=== PATIENT | male | born 1950 | race Caucasian/White ===

== ENCOUNTER 2018-01-02 09:26 | Day surgery (SDC) | payer OTHER ==
[2018-01-02] MEDS ORDERED: MIDAZOLAM 2 MG/2 ML VIAL IVP ONE (09:30)
[2018-01-02] MEDS ORDERED: ATROPINE SULFATE 1 MG/10 ML SYR IVP ONE (09:30)
[2018-01-02] MEDS ORDERED: fentaNYL 100 MCG/2 ML INJ IVP ONE (09:30)
[2018-01-02] MEDS ORDERED: NS 500 ML IV ONE (09:30)
[2018-01-02] MEDS ORDERED: BENZOCAINE UNIT DOSE SPRAY HURRICAINE MM ONE (09:30)
[2018-01-02 10:06] LABS: INR 1.2 (0.83-1.16); PROTIME(PATIENT) 15.4 SEC (12.0-15.0)
[2018-01-02] MEDS ORDERED: PROPOFOL 200 MG/20 ML VIAL ONE ×2 (11:02→11:24)
--- NOTE | 2018-01-02 11:02 | PDGENHP ---
History & Physical Chief Complaint: Atrial fibrillation History of Present Illness: Patient is a 67 y/o male with history of GERD, HLP, and prostate cancer, with ongoing atrial fibrillation (unknown duration). Patient was started on Eliquis (for this procedure) about one month ago. Pertinent Past, Social, Family History: Non smoker. . FHx: DM, prostate cancer, HTN Relevant Physical Exam: Atrial fibrillation with controlled ventricular response Cardiorespiratory Assessment: Controlled heart rate. Blood pressure well controlled. Normal respiratory rate.
--- NOTE | 2018-01-02 11:06 | POSTANESTH ---
Post Anesthetic Evaluation Cardiovascular Status: Normal, Stable Respiratory Status: Normal, Stable Level of Consciousness/Mental Status: Can Participate in Eval Pain Control: Adequate, Prn Tx Ordered Nausea/Vomiting Control: Adequate, Prn Tx Ordered Complications Possibly Related to Anesthesia: None Noted, Other, See Comments ( required GETA 2/2 hyperactive gag reflex)
--- NOTE | 2018-01-02 11:06 | PDANEPAE ---
ANE History of Present Illness INES CV ANE Past Medical History - Cardiovascular History Hx Hypertension: No Hx Arrhythmias: Yes Hx Chest Pain: No Hx Coronary Artery / Peripheral Vascular Disease: No Hx CHF / Valvular Disease: No Hx Palpitations: No - Pulmonary History Hx COPD: No Hx Asthma/Reactive Airway Disease: No Hx Recent Upper Respiratory Infection: No Hx Oxygen in Use at Home: No - Endocrine History Hx Diabetes: No ANE Review of Systems Review of systems is: negative Review of Systems: - Exercise capacity Exercise capacity: >=4 METS ANE Patient History - Allergies Allergies/Adverse Reactions: No Known Allergies Allergy (Verified 03/27/12 12:04) - Home Medications Home Medications: Beta-Carotene(A) W-C & E/Min [Ocuvite] 1 tab PO DAILY 03/27/12 [Last Taken 03/27] Niacin [Niacin 500 mg (OTC)] 500 mg PO DAILY 03/27/12 [Last Taken 03/27/12] Ranitidine HCl [Ranitidine HCl 150 mg] 150 mg PO BID 03/27/12 [Last Taken ] Aspirin [Aspirin 81mg (OTC)] 07/01/15 [Last Taken Unknown] Atorvastatin Calcium 07/01/15 [Last Taken Unknown] - Smoking Hx Smoking Status: Never smoked ANE Labs/Vital Signs - Labs Result Diagrams: 01/02/18 09:45 ANE Physical Exam - Airway Neck exam: FROM Mallampati Score: Class 2 Mouth exam: normal dental/mouth exam - Pulmonary Pulmonary: no respiratory distress - Cardiovascular Cardiovascular: regular rate and rhythym - ASA Status ASA Status: III ANE Anesthesia Plan Anesthesia Plan: GA with mask
--- NOTE | 2018-01-02 17:28 | PDTEE1 ---
INES Cardioversion Procedure Procedure: electrical cardioversion, transesophageal echo Indications: atrial fibrillation Consent: signed and in chart Anticoagulation: eliquis Procedural Details: After consents for anesthesia and INES with possible cardioversion were signed, the patient was positioned on the left lateral side to facilitate ease with INES probe placement. Sedation was rendered by anesthesia, and initial attempts with placement of the INES probe were frought with an extreme gag reflex. Further sedation did not limit this response. After unsuccessful INES probe placement and a judicious use of sedation without success, we opted to pursue intubation for airway protection. I stepped out of the room (anesthesia remained to monitor the patient), and spoke with the patient's and daughter about the concerns for safety with continued pursuit of these procedures. Time and room availability were noted, and we were able to proceed with intubation for airway protection at this time. The other option discussed would be to cancel the procedure completely, and reschedule on another day (which would be for general anesthesia with intubation ). The family was in agreement with pursuit of this procedure today given sedation that had been rendered, and a desire to have (a) awareness of thrombus or not as well as (b) possible cessation of the "newly" noted atrial fibrillation. The patient was then moved to the EP lab (anesthesia equipment and staffing were present), and anesthesia intubated the patient without incident. INES probe was placed without difficulty or resistance, and standard views were obtained. Preliminary report: Normal LVEF Dilated LA (mod to severe) Mild to mod MR Trileaflet aortic valve with sclerosis, but no stenosis or insufficiency Grossly normal tricuspid valve (no TR) Grossly normal pulmonic valve (no PI) Bubble contrast injection without right to left passage noted No thrombus to the MARIAJOSE (atrial smoke was noted) We opted to proceed with cardioversion as below Synchronized cardioversion attempt #1: 200J Synchronized cardioversion attempt #2: 300J Synchronized cardioversion attempt #3: 360J Results: other (atrial flutter was briefly noted after 300J and 360J cardioversions) Conclusions: successful INES Conclusion Comment: Recommendations post procedure were for outpatient follow up (in about 1 weeks) for discussion about options (should we opt to proceed). Would maintain therapies as at present (Eliquis for CVA prophylaxis post unsuccessful cardioversion). Patient has likely been in this arrhythmia for some time given the lack of response to three shocks of incrementally more voltage.
--- NOTE | 2018-01-03 17:43 | CPEKG ---
Test Reason : OPEN Blood Pressure : / mmHG Vent. Rate : 085 BPM Atrial Rate : 113 BPM P-R Int : 067 ms QRS Dur : 089 ms QT Int : 358 ms P-R-T Axes : 000 -30 000 degrees QTc Int : 426 ms Atrial fibrillation Inferior infarct, old Confirmed by Dawit Licona ([id number]) on 01/03/2018 5:43:10 PM Referred By: Confirmed By:Dawit Licona
== END 2018-01-02 16:28 | disposition home or self-care (01) ==
LOC: FCATH 09:26
PROVIDERS: ATTEND Internal Medicine Cardiovascular Disease
PROC: B245ZZ4 Ultrasonography of Left Heart, Transesophageal (ICD-10-PCS; principal; 2018-01-02)
PROC: 5A2204Z Restoration of Cardiac Rhythm, Single (ICD-10-PCS; principal; 2018-01-02)
DX: I48.91 Unspecified atrial fibrillation (principal); Z79.01 Long term (current) use of anticoagulants; E78.5 Hyperlipidemia, unspecified; K21.9 Gastro-esophageal reflux disease without esophagitis; Z85.46 Personal history of malignant neoplasm of prostate
CPT/HCPCS: J0461; J2704

== ENCOUNTER → 2018-01-05 | Outpatient (CLI) | payer OTHER | LOC: FCPNEURO 21:34 | PROVIDERS: ATTEND Student in an Organized Health Care Education/Training Program | DX: G47.33 Obstructive sleep apnea (adult) (pediatric) (principal) ==

== ENCOUNTER → 2018-06-09 | Outpatient (CLI) | payer OTHER | LOC: FIMAGING 08:00 ==

== ENCOUNTER 2018-07-28 05:43 | Day surgery (SDC) | payer OTHER ==
--- NOTE | 2018-07-21 09:46 | GHP ---
[f rep st] PREOP HISTORY AND PHYSICAL DATE OF ADMISSION: 07/28/2018 CHIEF COMPLAINT: Left inguinal hernia. HISTORY OF PRESENT ILLNESS: The patient is a 68-year-old male who presents for surgical evaluation o f a left inguinal hernia. He reports that the hernia has been present for several years but has neve r bothered him. He presents at the request of his tracer clerk, Dr. Desir, because he was unable to perform a colonoscopy due to the hernia. The patient has a family history of colon cancer but denies a personal history of the disease. He denies rectal bleeding, constipation, diarrhea, an d unintentional weight loss. PAST MEDICAL HISTORY: Atrial fibrillation, colon polyp, GERD, esophagitis, hyperlipidemia, macular d egeneration, prostate cancer status post radical prostatectomy in 2010. PAST SURGICAL HISTORY: Knee surgery, prostatectomy, tonsillectomy. MEDICATIONS: Aspirin 81 mg, atorvastatin 20 mg, Eliquis 5 mg, ferrous sulfate 325 mg, metoprolol tar trate 25 mg, multivitamin, niacin 500 mg, Ocuvite 631-39-0-150 mg, ranitidine 150 mg, Tylenol 325 mg, vitamin D3. ALLERGIES: No known drug allergies. FAMILY HISTORY: Diabetes, prostate cancer, breast cancer, hypertension. SOCIAL HISTORY: The patient is a nonsmoker and does not drink alcohol. REVIEW OF SYSTEMS: Ten-point review of systems was performed and is negative aside from what is in t he HPI. PHYSICAL EXAM: GENERAL: Well-appearing, well-dressed, well-groomed 68-year-old male in no acute dis tress. HEENT: Normocephalic, atraumatic. No gross hearing deficits. Mucous membranes are moist. Pupils are equal and round. CARDIAC: Irregularly irregular. No murmurs, clicks, or rubs. CHEST: Clear to auscultation bilaterally. No crackles, rales, or rhonchi. ABDOMEN: Soft, nontender, nondi stended. Small umbilical defect present. : A large, nonreducible left inguinal hernia containing colon and small bowel is present. No hernia appreciated on the right side. INTEGUMENTARY: Warm an d dry. No rashes or jaundice. MUSCULOSKELETAL: Moves all extremities equally x4. PSYCHIATRIC: Ap propriate mood and affect. NEUROLOGICAL: Alert and oriented x3. IMPRESSION AND PLAN: The patient is a 68-year-old male with a large, nonreducible inguinal hernia on the left side that contains colon and small bowel. We have discussed all risks and options. Risks of surgery include but are not limited to infection, bleeding, recurrence, damage to surrounding stru ctures including spermatic cord, bowel, bladder; heart attack; and . Patient understands and wi shes to proceed. We will proceed with laparoscopic left inguinal hernia repair with mesh with explor ation of the right side. He knows that he will need to be off his Eliquis for at least 24 hours prio r to surgery. /[id number]/MODL
[2018-07-28] MEDS ORDERED: ceFAZolin 2 GM/DEXTROSE 100 ML IV ONE (05:56)
[2018-07-28] MEDS ORDERED: LR 1,000 ML IV ONE (06:01)
[2018-07-28] MEDS ORDERED: LIDOCAINE 1% 2 ML INJ ID PRN (06:01)
[2018-07-28] MEDS ORDERED: LIDOCAINE 1% 2 ML INJ ONE (06:04)
--- NOTE | 2018-07-28 06:58 | PDANEPAE ---
ANE History of Present Illness Left, poss bilateral inguinal hernia ANE Past Medical History - Cardiovascular History Hx Hypertension: Yes Hx Arrhythmias: Yes Hx Chest Pain: No Hx Coronary Artery / Peripheral Vascular Disease: No Hx CHF / Valvular Disease: No Hx Palpitations: No Cardiovascular History Comment: Afib with failed cardiovertion 2018. Eliquis - Pulmonary History Hx COPD: No Hx Asthma/Reactive Airway Disease: No Hx Recent Upper Respiratory Infection: No Hx Oxygen in Use at Home: No Hx Sleep Apnea: Yes Sleep Apnea Screening Result - Last Documented: Positive Pulmonary History Comment: MATTHIEU uses CPAP - Neurologic History Hx Cerebrovascular Accident: No Hx Seizures: No Hx Dementia: No - Endocrine History Hx Diabetes: No - Renal History Hx Renal Disorders: No - Liver History Hx Hepatic Disorders: No - Neurological & Psychiatric Hx Hx Neurological and Psychiatric Disorders: No - Cancer History Hx Cancer: Yes Cancer History Comment: prostate - Congenital Disorder History Hx Congenital Disorders: No - GI History Hx Gastrointestinal Disorders: Yes Gastrointestinal History Comment: acid reflux - Other Health History Other Health History: none - Chronic Pain History Chronic Pain: No - Surgical History Prior Surgeries: none in last 5 yrs. prostectomy ANE Review of Systems Review of Systems: - Exercise capacity METS (RN): 4 METS ANE Patient History - Allergies Allergies/Adverse Reactions: No Known Allergies Allergy (Verified 03/27/12 12:04) - Home Medications Home medications: home medication list seen and reviewed Home Medications: Beta-Carotene(A) W-C & E/Min [Ocuvite] 03/27/12 [Last Taken 07/25/18] Niacin [Niacin 500 mg (OTC)] 03/27/12 [Last Taken 07/25/18] Ranitidine HCl [Ranitidine HCl 150 mg] 03/27/12 [Last Taken 07/27/18 19:00] Aspirin [Aspirin 81mg (OTC)] 07/01/15 [Last Taken 07/25/18] Atorvastatin Calcium 07/01/15 [Last Taken 07/27/18 21:00] Eliquis 07/25/18 [Last Taken 07/25/18] Metoprolol Tartrate 07/25/18 [Last Taken 07/27/18 21:00] - NPO status NPO Status: no food or drink >8 hours NPO Since - Liquids (Date): 07/27/18 NPO Since - Liquids (Time): 20:00 NPO Since - Solids (Date): 07/27/18 NPO Since - Solids (Time): 20:00 - Anes Hx Anes Hx: no prior problems - Smoking Hx Smoking Status: Never smoked - Family Anes Hx Family Hx Anesthesia Complications: none ANE Labs/Vital Signs - Vital Signs Blood Pressure: 128/90 Heart Rate: 77 Respiratory Rate: 16 O2 Sat (%): 95 Height: 172.72 cm Weight: 90.718 kg ANE Physical Exam - Airway Neck exam: decreased ROM Mallampati Score: Class 2 Mouth exam: normal dental/mouth exam - Pulmonary Pulmonary: no respiratory distress - Cardiovascular Cardiovascular: regular rate and rhythym - ASA Status ASA Status: II ANE Anesthesia Plan Anesthesia Plan: general endotracheal anesthesia
[2018-07-28] MEDS ORDERED: BUPIVACAINE 0.5% 30 ML SDV ONE (07:00)
[2018-07-28] MEDS ORDERED: MIDAZOLAM 2 MG/2 ML VIAL IVP ONE (07:06)
--- NOTE | 2018-07-28 07:06 | PDHPUP ---
History & Physical Update H&P update statement: This history and physical update is based on an assessment of the patient which was completed after admission or registration (within 24 hours), but prior to the surgery/procedure. H&P update: H&P reviewed & patient examined, no change in patient's condition since H&P completed
[2018-07-28] MEDS ORDERED: fentaNYL 100 MCG/2 ML INJ IVP PRN (07:56)
[2018-07-28] MEDS ORDERED: ONDANSETRON 4 MG/2 ML VIAL IVP PRN (07:56)
[2018-07-28] MEDS ORDERED: NALOXONE HCL 0.4 MG/ML INJ IVP PRN (07:56)
[2018-07-28] MEDS ORDERED: PROMETHAZINE HCL 25 MG/ML INJ IVP PRN (07:56)
--- NOTE | 2018-07-28 08:55 | POSTANESTH ---
Post Anesthetic Evaluation Cardiovascular Status: Similar to Pre-Op Cond Respiratory Status: Similar to Pre-op Cond. Level of Consciousness/Mental Status: Alert and Oriented Pain Control: Adequate, Prn Tx Ordered Nausea/Vomiting Control: Adequate, Prn Tx Ordered Complications Possibly Related to Anesthesia: None Noted
[2018-07-28 10:45] VITALS: BP 121/85
--- NOTE | 2018-07-28 11:57 | POSTOPPROG ---
Post Op Note Date of Operation: 07/28/18 Surgeon: Eder Ceballos Document Preparation Specialist: Beatriz Anesthesiologist: Yadira Anesthesia: GET(General Endotracheal) Pre-op Diagnosis: LIH, umbilcal hernia Post-op Diagnosis: same Indication: same Procedure: Lap LIH and umbilical hernia repairs, exploration of R side Findings: Large, bowel containing LIH, small umbilcal defect. No hernia on R side Inf/Abcess present in the surg proc area at time of surgery?: No Depth: Deep Incisional (Fascial) EBL: Minimal
--- NOTE | 2018-07-31 21:20 | GOP ---
[f rep st] OPERATIVE REPORT DATE OF OPERATION: 07/28/2018 SURGEON: Eder Ceballos MD RECYCLE DRIVER: Dilma Henderson, nurse-practitioner. PREOPERATIVE DIAGNOSIS: Incarcerated left inguinal hernia. POSTOPERATIVE DIAGNOSIS: Incarcerated left inguinal hernia. PROCEDURE PERFORMED: Laparoscopic repair of incarcerated left inguinal hernia. FINDINGS: Patient found to have a large indirect left inguinal hernia with an intact inguinal floor. DESCRIPTION OF PROCEDURE: Patient was taken to the operating room where he received a satisfactory g eneral endotracheal anesthesia. He was placed in supine position, prepped and draped in usual steril e fashion. An infraumbilical incision was made. Dissection extended down to the rectus sheath which was incised. A subfascial tunnel was developed in the preperitoneal space. That was dissected free with a balloon dissector which was replaced with a CO2 insufflation trocar. Two other trocars place d in the lower abdomen under direct vision. Artur's ligament was exposed. The patient had a fair a mount of scar tissue from his previous prostate surgery. The right side of the inguinal floor could not be well visualized, but did not appear to have any herniations. On the left, a large indirect sa c was dissected free from the cord structures until it could be completely reduced with some lipomato us tissue that was taken along with it. The cord was fully mobilized. Hemostasis was assured. A Co vidien polyester split mesh was placed past the limb around the cord structures and placed over the i nguinal floor. It was anchored in place with AbsorbaTack, securing it to Artur's ligament, to the l acunar ligament to the anterior abdominal wall and the lateral abdominal wall outside the internal ri ng. Hemostasis was assured. Trocars removed under direct vision. Pneumopreperitoneum was released. Trocar sites were closed with 0 Vicryl for the fascia, 4-0 Monocryl subcuticular stitch for the ski n and all layers infiltrated with 0.5% Marcaine. Blood loss was negligible. He was taken to recover y room in good condition. Copy requested to: Yamil Flores MD /[id number]/MODL
== END 2018-07-28 10:12 | disposition home or self-care (01) ==
LOC: FSGY 05:43
PROVIDERS: ATTEND Surgery
PROC: 0YQ64ZZ Repair Left Inguinal Region, Percutaneous Endoscopic Approach (ICD-10-PCS; principal; 2018-07-28 07:15)
PROC: 0YU64JZ Supplement Left Inguinal Region with Synthetic Substitute, Percutaneous Endoscopic Approach (ICD-10-PCS; principal; 2018-07-28 07:15)
DX: K40.90 Unilateral inguinal hernia, without obstruction or gangrene, not specified as recurrent (principal); Z85.46 Personal history of malignant neoplasm of prostate; Z80.0 Family history of malignant neoplasm of digestive organs
CPT/HCPCS: C1727; C1781; J0690; J2250